=== PATIENT | female | born 2000 | race Caucasian/White ===

== ENCOUNTER 2022-10-18 23:38 | Emergency (ER) | payer SELFPAY ==
[~2022-10-18] VITALS: Ht 157.4 cm; Wt 58.5 kg
[2022-10-18] MEDS ORDERED: EFFEXOR XR37.5 M1 PO (23:47)
[2022-10-19 00:12] LABS: BASO % 0.3 % (0.0-1.0); EOS # 0.1 10*3/uL (0.0-0.4); HEMATOCRIT 38.8 % (37.0-47.0); LYMPH # 2.7 10*3/uL (1.3-4.4); LYMPH % 45.3 % (27.0-41.0); MEAN CELL VOLUME 87.6 fl (81.0-99.0); MEAN CORPUSCULAR HGB 28.4 pg (27.0-31.0); MEAN CORPUSCULAR HGB CONC 32.5 g/dl (33.0-37.0); MEAN PLATELET VOLUME 9.1 fl (9.6-12.3); MONO # 0.5 10*3/uL (0.1-1.0); MONO % 7.7 % (3.0-9.0); NEUT # 2.6 10*3/uL (2.3-7.9); NEUT % 44.4 % (47.0-73.0); PLATELET COUNT AUTOMATED 369 10*3/uL (130-400); RED BLOOD COUNT 4.43 10*6/uL (4.10-5.10); RED CELL DISTRI WIDTH 12.6 % (0-14.5); WHITE BLOOD COUNT 5.9 10*3/uL (4.8-10.8)
[2022-10-19 00:27] LABS: ALKALINE PHOSPHATASE 34 U/L (46-116); BUN 9 mg/dl (9-23); CHLORIDE 106 mmol/L (98-107); LIPASE 34 U/L (12-53); POTASSIUM 3.7 mmol/L (3.4-5.1); SGPT/ALT 17 U/L (10-49); TOTAL PROTEIN 7.3 gm/dL (6.0-8.0)
[2022-10-19 02:41] LABS: BILIRUBIN Negative (Negative); BLOOD 2+ (Negative); CLARITY Cloudy (Clear); COLOR Yellow (Yellow); GLUCOSE Negative (Negative); KETONE Trace (Negative); LEUKO ESTERASE 2+ (Negative); NITRITE Positive (Negative); SPECIFIC GRAVITY 1.015 (1.001-1.030)
[2022-10-19 02:57] LABS: BACTERIA 4+; EPITHELIAL CELLS 31-40; RBC 16-20 rbc/hpf (0-2); WBC 16-20 wbc/hpf (0-5)
[2022-10-19] MEDS ORDERED: CIPRO500 MG PO (02:59)
== END 2022-10-19 03:10 | disposition home or self-care (01) ==
LOC: ED 23:38
PROVIDERS: Internal Medicine
DX: N39.0 Urinary tract infection, site not specified (principal); Z79.899 Other long term (current) drug therapy

== ENCOUNTER 2022-12-16 13:52 | Emergency (ER) | payer SELFPAY ==
[~2022-12-16] VITALS: Wt 61.2 kg
[~2022-12-16 13:52] MED LIST: CIPRO500 MG PO; EFFEXOR XR37.5 M1 PO
[2022-12-16] MEDS ORDERED: VENLAFAXINE HY150 M2 PO (14:21)
[2022-12-16] MEDS ORDERED: LAMOTRIGINE25 M1 PO (14:22)
[2022-12-16] MEDS ORDERED: CITROMA296 ML PO (15:05)
== END 2022-12-16 15:16 | disposition home or self-care (01) ==
LOC: ED 13:52
DX: K59.00 Constipation, unspecified (principal); Z79.899 Other long term (current) drug therapy

== ENCOUNTER 2022-12-26 18:37 | Emergency (ER) | payer SELFPAY ==
[~2022-12-26] VITALS: Ht 157.4 cm; Wt 61.2 kg
[~2022-12-26 18:37] MED LIST changes: +CITROMA296 ML PO; +LAMOTRIGINE25 M1 PO; +VENLAFAXINE HY150 M2 PO
== END 2022-12-26 20:59 | disposition home or self-care (01) ==
LOC: ED 18:37
DX: S09.90XA Unspecified injury of head, initial encounter (principal); Z79.899 Other long term (current) drug therapy; F17.200 Nicotine dependence, unspecified, uncomplicated; W22.8XXA Striking against or struck by other objects, initial encounter; Y93.89 Activity, other specified; Y92.89 Other specified places as the place of occurrence of the external cause; Y99.8 Other external cause status

== ENCOUNTER 2023-03-21 23:57 | Emergency (ER) | payer BC ==
[~2023-03-21] VITALS: Ht 157.4 cm; Wt 65.8 kg
[2023-03-22] MEDS ORDERED: MACROBID100 M1 PO (00:08)
[2023-03-22] MEDS ORDERED: LAMICTAL100 MG PO (00:08)
[2023-03-22] MEDS ORDERED: PYRIDIUM100 MG PO (00:08)
[2023-03-22] MEDS ORDERED: EFFEXOR XR75 M1 PO (00:08)
[2023-03-22 01:23] LABS: BASO % 0.5 % (0.0-1.0); EOS # 0.3 10*3/uL (0.0-0.4); EOS % 5.1 % (1.0-4.0); LYMPH # 2.4 10*3/uL (1.3-4.4); LYMPH % 42.6 % (27.0-41.0); MEAN CELL VOLUME 87.3 fl (81.0-99.0); MEAN CORPUSCULAR HGB 28.5 pg (27.0-31.0); MEAN CORPUSCULAR HGB CONC 32.7 g/dl (33.0-37.0); MEAN PLATELET VOLUME 9.3 fl (9.6-12.3); MONO # 0.6 10*3/uL (0.1-1.0); MONO % 10.6 % (3.0-9.0); NEUT # 2.3 10*3/uL (2.3-7.9); PLATELET COUNT AUTOMATED 337 10*3/uL (130-400); RED BLOOD COUNT 4.24 10*6/uL (4.10-5.10); RED CELL DISTRI WIDTH 12.2 % (0-14.5); WHITE BLOOD COUNT 5.7 10*3/uL (4.8-10.8)
[2023-03-22 01:55] LABS: ALKALINE PHOSPHATASE 41 U/L (46-116); BUN 10 mg/dl (9-23); CHLORIDE 107 mmol/L (98-107); LIPASE 35 U/L (12-53); POTASSIUM 4.2 mmol/L (3.4-5.1); SGPT/ALT 58 U/L (10-49); TOTAL PROTEIN 6.9 gm/dL (6.0-8.0)
[2023-03-22] MEDS ORDERED: DICYCLOMINE HYD20 MG PO (02:26)
== END 2023-03-22 02:37 | disposition home or self-care (01) ==
LOC: ED 23:57
PROVIDERS: Emergency Medicine
DX: R10.11 Right upper quadrant pain (principal); R74.01 Elevation of levels of liver transaminase levels; F31.9 Bipolar disorder, unspecified; F41.9 Anxiety disorder, unspecified; Z87.891 Personal history of nicotine dependence

== ENCOUNTER 2023-04-03 13:46 | Emergency (ER) | payer BC ==
[~2023-04-03] VITALS: Ht 157.4 cm; Wt 63.5 kg
[~2023-04-03 13:46] MED LIST changes: +DICYCLOMINE HYD20 MG PO; +EFFEXOR XR75 M1 PO; +LAMICTAL100 MG PO; +MACROBID100 M1 PO; +PYRIDIUM100 MG PO
[2023-04-03] MEDS ORDERED: AUBRA EQ-28 TA1 EACH PO (13:54)
[2023-04-03 14:20] LABS: BASO % 0.1 % (0.0-1.0); EOS # 0.2 10*3/uL (0.0-0.4); EOS % 3.3 % (1.0-4.0); HEMATOCRIT 39.1 % (37.0-47.0); LYMPH # 2.4 10*3/uL (1.3-4.4); MEAN CELL VOLUME 86.1 fl (81.0-99.0); MEAN CORPUSCULAR HGB 28.6 pg (27.0-31.0); MEAN CORPUSCULAR HGB CONC 33.2 g/dl (33.0-37.0); MEAN PLATELET VOLUME 9.1 fl (9.6-12.3); MONO # 0.5 10*3/uL (0.1-1.0); MONO % 8.1 % (3.0-9.0); NEUT # 3.5 10*3/uL (2.3-7.9); NEUT % 52.4 % (47.0-73.0); PLATELET COUNT AUTOMATED 364 10*3/uL (130-400); RED BLOOD COUNT 4.54 10*6/uL (4.10-5.10); RED CELL DISTRI WIDTH 12.6 % (0-14.5); WHITE BLOOD COUNT 6.7 10*3/uL (4.8-10.8)
[2023-04-03 14:43] LABS: ALKALINE PHOSPHATASE 40 U/L (46-116); BUN 8 mg/dl (9-23); CHLORIDE 107 mmol/L (98-107); LIPASE 26 U/L (12-53); POTASSIUM 3.9 mmol/L (3.4-5.1); SGPT/ALT 29 U/L (10-49); TOTAL PROTEIN 7.5 gm/dL (6.0-8.0)
[2023-04-03 15:38] LABS: BILIRUBIN Negative (Negative); BLOOD Negative (Negative); CLARITY Cloudy (Clear); COLOR Yellow (Yellow); GLUCOSE Negative (Negative); KETONE Negative (Negative); LEUKO ESTERASE Trace (Negative); NITRITE Negative (Negative); PH 7.5 (4.5-8.0)
[2023-04-03] MEDS ORDERED: REGLAN10 M1 PO (15:56)
[2023-04-03] MEDS ORDERED: PEPCID20 MG PO (15:56)
[2023-04-03 16:05] LABS: BACTERIA 2+; RBC 0-2 rbc/hpf (0-2)
== END 2023-04-03 16:02 | disposition home or self-care (01) ==
LOC: ED 13:46
PROVIDERS: Emergency Medicine
DX: K29.70 Gastritis, unspecified, without bleeding (principal); R11.2 Nausea with vomiting, unspecified; F31.9 Bipolar disorder, unspecified; F41.9 Anxiety disorder, unspecified; F17.200 Nicotine dependence, unspecified, uncomplicated

== ENCOUNTER 2023-07-20 00:46 | Emergency (ER) | payer BC ==
[~2023-07-20] VITALS: Ht 157.4 cm; Wt 68.5 kg
[~2023-07-20 00:46] MED LIST changes: +AUBRA EQ-28 TA1 EACH PO; +PEPCID20 MG PO; +REGLAN10 M1 PO
[2023-07-20 01:29] LABS: BASO % 0.5 % (0.0-1.0); EOS # 0.2 10*3/uL (0.0-0.4); EOS % 2.5 % (1.0-4.0); HEMATOCRIT 37.7 % (37.0-47.0); LYMPH # 2.6 10*3/uL (1.3-4.4); LYMPH % 40.4 % (27.0-41.0); MEAN CELL VOLUME 84.3 fl (81.0-99.0); MEAN CORPUSCULAR HGB CONC 33.2 g/dl (33.0-37.0); MEAN PLATELET VOLUME 9.4 fl (9.6-12.3); MONO # 0.6 10*3/uL (0.1-1.0); NEUT % 47.4 % (47.0-73.0); PLATELET COUNT AUTOMATED 368 10*3/uL (130-400); RED BLOOD COUNT 4.47 10*6/uL (4.10-5.10); RED CELL DISTRI WIDTH 12.5 % (0-14.5); WHITE BLOOD COUNT 6.3 10*3/uL (4.8-10.8)
[2023-07-20 01:49] LABS: ALKALINE PHOSPHATASE 34 U/L (46-116); BUN 9 mg/dl (9-23); CHLORIDE 104 mmol/L (98-107); POTASSIUM 3.5 mmol/L (3.4-5.1); SGPT/ALT 29 U/L (5-49); TOTAL PROTEIN 7.2 gm/dL (6.0-8.0)
[2023-07-20 01:59] LABS: ETHYL ALCOHOL < 3.0 mg/dl (<3)
[2023-07-20 02:58] LABS: BILIRUBIN Negative (Negative); BLOOD 1+ (Negative); CLARITY Clear (Clear); COLOR Yellow (Yellow); GLUCOSE Negative (Negative); KETONE Trace (Negative); LEUKO ESTERASE Negative (Negative); NITRITE Negative (Negative); SPECIFIC GRAVITY <= 1.005 (1.001-1.030); UROBILINOGEN 0.2 E.U./dl (0.0-1.0)
[2023-07-20 03:05] LABS: URINE AMPHETAMINES Negative (1000ng/ml); URINE BARBITURATES Negative (200ng/ml); URINE BENZODIAZEPINES Negative (200ng/ml); URINE CANNABINOIDS (THC) Positive (50ng/ml); URINE COCAINE Negative (300ng/ml); URINE METHADONE Negative (300ng/ml); URINE OPIATES Negative (300ng/ml); URINE PHENCYCLIDINE Negative (25ng/ml)
[2023-07-20 03:21] LABS: BACTERIA TRACE; EPITHELIAL CELLS 16-20; MUCOUS 1+
== END 2023-07-20 11:27 ==
LOC: ED 00:46
PROVIDERS: Internal Medicine
DX: F31.9 Bipolar disorder, unspecified (principal); F41.9 Anxiety disorder, unspecified; F17.210 Nicotine dependence, cigarettes, uncomplicated; Z79.899 Other long term (current) drug therapy

== ENCOUNTER 2023-10-10 11:41 | Emergency (ER) | payer BC ==
[~2023-10-10] VITALS: Ht 160 cm; Wt 70.3 kg
[2023-10-10] MEDS ORDERED: AMITRIPTYLINE50 MG PO (12:10)
[2023-10-10] MEDS ORDERED: DIVALPROEX SOD250 MG PO (12:10)
[2023-10-10] MEDS ORDERED: TIZANIDINE2 MG PO (12:11)
[2023-10-10] MEDS ORDERED: ZAFEMY 150-351 EACH TD (12:11)
[2023-10-10] MEDS ORDERED: Promethazine Hydrochloride 25 MG TAB PO ONE (12:15)
[2023-10-10 12:27] LABS: BASO % 0.5 % (0.0-1.0); EOS # 0.2 10*3/uL (0.0-0.4); EOS % 4.8 % (1.0-4.0); HEMATOCRIT 39.6 % (37.0-47.0); LYMPH # 1.9 10*3/uL (1.3-4.4); LYMPH % 46.7 % (27.0-41.0); MEAN CELL VOLUME 85.5 fl (81.0-99.0); MEAN CORPUSCULAR HGB 27.4 pg (27.0-31.0); MEAN CORPUSCULAR HGB CONC 32.1 g/dl (33.0-37.0); MEAN PLATELET VOLUME 9.2 fl (9.6-12.3); MONO # 0.4 10*3/uL (0.1-1.0); MONO % 8.4 % (3.0-9.0); NEUT # 1.6 10*3/uL (2.3-7.9); NEUT % 39.4 % (47.0-73.0); PLATELET COUNT AUTOMATED 366 10*3/uL (130-400); RED BLOOD COUNT 4.63 10*6/uL (4.10-5.10); RED CELL DISTRI WIDTH 12.5 % (0-14.5); WHITE BLOOD COUNT 4.2 10*3/uL (4.8-10.8)
[2023-10-10 12:52] LABS: BILIRUBIN Negative (Negative); BLOOD Negative (Negative); CLARITY Cloudy (Clear); COLOR Yellow (Yellow); GLUCOSE Negative (Negative); KETONE Negative (Negative); LEUKO ESTERASE 3+ (Negative); NITRITE Negative (Negative); SPECIFIC GRAVITY 1.015 (1.001-1.030)
[2023-10-10 12:52] LABS: BUN 8 mg/dl (9-23); CHLORIDE 107 mmol/L (98-107); LIPASE 24 U/L (12-53); POTASSIUM 3.9 mmol/L (3.4-5.1); SGPT/ALT 53 U/L (5-49)
[2023-10-10 13:19] LABS: BACTERIA 2+; EPITHELIAL CELLS TNTC; WBC TNTC wbc/hpf (0-5)
[2023-10-10] MEDS ORDERED: Nitrofurantoin Monohydrate/N 100 MG CAP PO ONE (14:05)
[2023-10-10] MEDS ORDERED: MACROBID100 M1 PO (14:11)
== END 2023-10-10 14:43 | disposition home or self-care (01) ==
LOC: ED 11:41
PROVIDERS: Nurse Practitioner Family
DX: N39.0 Urinary tract infection, site not specified (principal); R11.2 Nausea with vomiting, unspecified; F31.9 Bipolar disorder, unspecified; F41.9 Anxiety disorder, unspecified

== ENCOUNTER 2023-11-26 13:41 | Emergency (ER) | payer BC ==
[~2023-11-26] VITALS: Ht 157.4 cm; Wt 72.6 kg
[~2023-11-26 13:41] MED LIST changes: +AMITRIPTYLINE50 MG PO; +DIVALPROEX SOD250 MG PO; +TIZANIDINE2 MG PO; +ZAFEMY 150-351 EACH TD
[2023-11-26] MEDS ORDERED: IBU800 M2 PO (14:20)
[2023-11-26] MEDS ORDERED: Metoclopramide Hydrochloride 10 MG/2 ML AMP IV ONE (14:20)
[2023-11-26] MEDS ORDERED: diphenhydrAMINE hydrochloride 50 MG/ML VIAL IV ONE (14:20)
[2023-11-26] MEDS ORDERED: SODIUM CHLORIDE 0.9% 1,000 ML IV ONE (14:20)
[2023-11-26] MEDS ORDERED: Ketorolac Tromethamine 15 MG/ML VIAL IV ONE (14:20)
[2023-11-26 14:31] LABS: BASO % 0.3 % (0.0-1.0); EOS # 0.1 10*3/uL (0.0-0.4); EOS % 1.1 % (1.0-4.0); HEMATOCRIT 40.4 % (37.0-47.0); LYMPH % 30.3 % (27.0-41.0); MEAN CELL VOLUME 86.1 fl (81.0-99.0); MEAN CORPUSCULAR HGB 27.3 pg (27.0-31.0); MEAN CORPUSCULAR HGB CONC 31.7 g/dl (33.0-37.0); MEAN PLATELET VOLUME 9.6 fl (9.6-12.3); MONO # 0.5 10*3/uL (0.1-1.0); MONO % 6.9 % (3.0-9.0); NEUT % 61.1 % (47.0-73.0); PLATELET COUNT AUTOMATED 351 10*3/uL (130-400); RED BLOOD COUNT 4.69 10*6/uL (4.10-5.10); RED CELL DISTRI WIDTH 12.5 % (0-14.5); WHITE BLOOD COUNT 6.5 10*3/uL (4.8-10.8)
[2023-11-26 14:51] LABS: ALKALINE PHOSPHATASE 41 U/L (46-116); BUN 9 mg/dl (9-23); CHLORIDE 109 mmol/L (98-107); POTASSIUM 3.8 mmol/L (3.4-5.1); SGPT/ALT 43 U/L (5-49); TOTAL PROTEIN 7.5 gm/dL (6.0-8.0)
== END 2023-11-26 16:48 | disposition home or self-care (01) ==
LOC: ED 13:41
PROVIDERS: Emergency Medicine
DX: G43.909 Migraine, unspecified, not intractable, without status migrainosus (principal); H53.8 Other visual disturbances; R11.2 Nausea with vomiting, unspecified; F31.9 Bipolar disorder, unspecified; F41.9 Anxiety disorder, unspecified

== ENCOUNTER 2024-01-23 17:00 | Emergency (ER) | payer BC ==
[~2024-01-23] VITALS: Ht 157.4 cm; Wt 68.0 kg
[~2024-01-23 17:00] MED LIST changes: +IBU800 M2 PO; +PREDNISONE20 M1 PO
[2024-01-23] MEDS ORDERED: Ondansetron Hydrochloride 4 MG/2 ML VIAL IV ONE (17:25)
[2024-01-23] MEDS ORDERED: SODIUM CHLORIDE 0.9% 1,000 ML IV ONE (17:25)
[2024-01-23 17:56] LABS: BASO % 0.3 % (0.0-1.0); EOS # 0.1 10*3/uL (0.0-0.4); EOS % 2.4 % (1.0-4.0); HEMATOCRIT 38.2 % (37.0-47.0); LYMPH # 2.1 10*3/uL (1.3-4.4); LYMPH % 36.1 % (27.0-41.0); MEAN CORPUSCULAR HGB 27.3 pg (27.0-31.0); MEAN CORPUSCULAR HGB CONC 31.7 g/dl (33.0-37.0); MEAN PLATELET VOLUME 9.5 fl (9.6-12.3); MONO # 0.5 10*3/uL (0.1-1.0); MONO % 8.7 % (3.0-9.0); NEUT % 52.3 % (47.0-73.0); PLATELET COUNT AUTOMATED 371 10*3/uL (130-400); RED BLOOD COUNT 4.44 10*6/uL (4.10-5.10); RED CELL DISTRI WIDTH 12.9 % (0-14.5); WHITE BLOOD COUNT 5.7 10*3/uL (4.8-10.8)
[2024-01-23] MEDS ORDERED: IOHEXOL 300 MG/ML 100 ML VIAL IV ONE (18:10)
[2024-01-23 18:18] LABS: ALKALINE PHOSPHATASE 38 U/L (46-116); BUN 7 mg/dl (9-23); CHLORIDE 107 mmol/L (98-107); LIPASE 30 U/L (12-53); POTASSIUM 3.6 mmol/L (3.4-5.1); SGPT/ALT 43 U/L (5-49); TOTAL PROTEIN 7.2 gm/dL (6.0-8.0)
[2024-01-23 19:05] LABS: BILIRUBIN Negative (Negative); BLOOD Negative (Negative); CLARITY Cloudy (Clear); COLOR Yellow (Yellow); GLUCOSE Negative (Negative); KETONE 3+ (Negative); LEUKO ESTERASE Trace (Negative); NITRITE Negative (Negative); UROBILINOGEN 0.2 E.U./dl (0.0-1.0)
[2024-01-23 19:09] LABS: EPITHELIAL CELLS 16-20; RBC 0-2 rbc/hpf (0-2)
[2024-01-23 19:10] LABS: BACTERIA TRACE
[2024-01-24] MEDS ORDERED: METRONIDAZOLE500 M1 PO (12:14)
== END 2024-01-23 19:49 | disposition home or self-care (01) ==
LOC: ED 17:00
PROVIDERS: Nurse Practitioner
DX: K52.9 Noninfective gastroenteritis and colitis, unspecified (principal); R39.12 Poor urinary stream; Z79.899 Other long term (current) drug therapy

== ENCOUNTER 2024-01-24 08:51 | Emergency (ER) | payer BC ==
[~2024-01-24] VITALS: Wt 68.0 kg
[2024-01-24] MEDS ORDERED: Ondansetron Hydrochloride 4 MG TAB PO ONE (09:20)
[2024-01-24] MEDS ORDERED: Ketorolac Tromethamine 30 MG/ML VIAL IM ONE (09:20)
[2024-01-24 10:34] LABS: BASO % 0.2 % (0.0-1.0); EOS # 0.1 10*3/uL (0.0-0.4); HEMATOCRIT 36.3 % (37.0-47.0); LYMPH # 1.5 10*3/uL (1.3-4.4); LYMPH % 25.3 % (27.0-41.0); MEAN CELL VOLUME 85.6 fl (81.0-99.0); MEAN CORPUSCULAR HGB 27.6 pg (27.0-31.0); MEAN CORPUSCULAR HGB CONC 32.2 g/dl (33.0-37.0); MEAN PLATELET VOLUME 9.4 fl (9.6-12.3); MONO # 0.4 10*3/uL (0.1-1.0); MONO % 5.9 % (3.0-9.0); NEUT # 4.1 10*3/uL (2.3-7.9); NEUT % 66.4 % (47.0-73.0); PLATELET COUNT AUTOMATED 339 10*3/uL (130-400); RED BLOOD COUNT 4.24 10*6/uL (4.10-5.10); WHITE BLOOD COUNT 6.1 10*3/uL (4.8-10.8)
[2024-01-24 10:55] LABS: ALKALINE PHOSPHATASE 38 U/L (46-116); BUN 6 mg/dl (9-23); CHLORIDE 108 mmol/L (98-107); POTASSIUM 3.7 mmol/L (3.4-5.1); SGPT/ALT 42 U/L (5-49)
[2024-01-24] MEDS ORDERED: METRONIDAZOLE500 M1 PO (12:14)
== END 2024-01-24 12:25 | disposition home or self-care (01) ==
LOC: ED 08:51
PROVIDERS: Nurse Practitioner
DX: N76.0 Acute vaginitis (principal); B96.89 Other specified bacterial agents as the cause of diseases classified elsewhere; Z79.899 Other long term (current) drug therapy